=== PATIENT | male | born 1945 | race Caucasian/White ===

== ENCOUNTER → 2016-07-25 | Outpatient (CLI) | payer MEDICARE ==
[~2016-07-25] MED LIST: ASP81TEC PO; ATOR40TA70 PO; CLOP75TA PO; MECL-124 PO; METO25TA2 PO; VITA400T9 PO
== END ==
LOC: CARD 10:07
PROVIDERS: ATTEND Internal Medicine Cardiovascular Disease
DX: I25.10 Atherosclerotic heart disease of native coronary artery without angina pectoris (principal); E78.2 Mixed hyperlipidemia; I10 Essential (primary) hypertension; I49.3 Ventricular premature depolarization
CPT/HCPCS: 93306

== ENCOUNTER 2016-07-26 12:22 | Day surgery (SDC) | payer MEDICARE ==
[~2016-07-26] VITALS: Ht 182.9 cm; Wt 83.9 kg
[2016-07-26] MEDS ORDERED: NS IV 1000 ML 1,000 ML ONE (12:28)
[2016-07-26] MEDS ORDERED: HEParin (CATH LAB) 2,000 ML IV ONE (12:28)
[2016-07-26] MEDS ORDERED: NS IV 1000 ML 1,000 ML IV SCH ×2 (12:34→15:51)
[2016-07-26 12:53] VITALS: BP 145/92
[2016-07-26 12:55] LABS: BILIRUBIN,URINE NEGATIVE (NEGATIVE); KETONES,URINE NEGATIVE (NEGATIVE); LEUKOCYTE ESTERASE ,URINE 1+ (NEGATIVE); MEAN PLATELET VOLUME 9.7 FL (7.4-10.4); NITRITE,URINE NEGATIVE (NEGATIVE); PH,URINE 6 (5-9); PROTEIN,URINE 1+ (NEGATIVE); RED BLOOD COUNT 4.44 10^6/uL (4.35-5.85); RED CELL DISTRIBUTION WIDTH 13.1 % (10.0-14.5); UROBILINOGEN,URINE NORMAL (NORMAL); WHITE BLOOD COUNT 6.1 10^3/uL (4.3-11.0)
[2016-07-26 13:03] LABS: PROTHROMBIN TIME PATIENT 13.2 SEC (12.2-14.7)
[2016-07-26 13:12] LABS: ALBUMIN 4.5 GM/DL (3.2-4.5); BILIRUBIN,TOTAL 1.4 MG/DL (0.1-1.0); CALCIUM 9.6 MG/DL (8.5-10.1); CREATININE SERUM 1.34 MG/DL (0.60-1.30); POTASSIUM 4.3 MMOL/L (3.6-5.0); SQUAMOUS EPITHELIAL CELL,UR RARE /HPF; TOTAL PROTEIN 6.9 GM/DL (6.4-8.2); WBC,URINE RARE /HPF
--- NOTE | 2016-07-26 13:19 | Diagnostic Imaging Report ---
Portable upright radiograph of the chest. INDICATION: Abnormal stress test. FINDINGS: The lungs are clear. The heart size is normal. No effusion or pneumothorax. The mediastinum and vivian appear unremarkable. Sternotomy wires are seen. IMPRESSION: Unremarkable exam. Dictated by: Dictated on workstation # [id number]
[2016-07-26] MEDS ORDERED: fentaNYL INJECTION 100 MCG/2 ML AMP ONE (15:07)
[2016-07-26] MEDS ORDERED: MIDAZOLAM 5 MG/5 ML (VERSED) VIAL ONE (15:07)
--- NOTE | 2016-07-26 15:29 | Cardiac Procedure Note-CS/ASA ---
Pre-Procedure Note Pre-Op Procedure Note H&P Reviewed The H&P was reviewed, patient examined and no changes noted. Date H&P Reviewed: Jul 26, 2016 Time H&P Reviewed: 15:28 Conscious Sedation Pre-Proced Time Reviewed: 15:28 ASA Class: 3 Airway Mallampati Classification: ([place] appropriate class) I. II. III, IV Lungs Heart ASA score ASA 1: a normal healthy patient x ASA 2: a patient with a mild systemic disease (mid diabetes, controlled hypertension, obesity ASA 3: a patient with a severe systemic disease that limits activity (angina , COPD, prior Myocardial infarction) ASA 4: a patient with an incapacitating disease that is a constant threat to life (CHF, renal failure) ASA 5: a moribund patient not expected to survive 24 hrs. (ruptured aneurysm) ASA 6: a declared brain patient whose organs are being harvested. For emergent operations, add the letter E after the classification Grade 3 Sedation Plan: Analgesia, Amnesia, Plan communicated to team members, Discussed options with patient/fam, Discussed risks with patient/fam Note The patient is an appropriate candidate to undergo the planned procedure, sedation, and anesthesia. The patient immediately re-assessed prior to indication. NERI MARIA MD Jul 26, 2016 15:29
--- NOTE | 2016-07-26 15:53 | Discharge Inst-Post CATH ---
Discharge Inst-CATH Post Cardiac Cath D/C Inst Follow Up/Plan Appointment with Dr Schaefer's office in 2-4 weeks CARDIAC CATH DISCHARGE INSTRUCTIONS *Hold Metformin for 48 hours post heart cath. ACTIVITY * Go Home directly and rest. * Limit activity of the leg (or wrist if it was used) for 7 days including aerobics, swimming, jogging, bicycling, etc. * Restrict stair-climbing for 7 days if possible, if not, climb up with your non -cath leg, then bring together on the same step. * Avoid lifting, pushing, pulling or excessive movement of the affected extremity for 7 days. * Customary sexual activity may be resumed after 2 days-use caution not to use a position that strains or causes pain to the affected extremity. * No driving for 24 hours. * NO SMOKING. * Avoid straining for bowel movements for 7 days. * Gentle walking on level ground is allowed. * Returning to work will depend on the type of procedure and the results. Your doctor will discuss this with you. CALL YOUR DOCTOR FOR ANY OF THE FOLLOWING: *If bleeding from the puncture site occurs- Apply gentle pressure to site with clean cloth and call your doctor or EMS. * If a knot or lump forms under the skin, increases in size, or causes pain. * If bruising appears to be worsening or moving further down your leg instead of disappearing. * Temperature above 101 F. CARE OF YOUR GROIN INCISION; * Bruising or purple discoloration of the skin near the puncture site is common. * You may shower only, no bathtub bathing for 5 days. Be careful to avoid slipping as your leg may feel stiff. * If a closure device was used on your femoral artery, please see the attached guide regarding care of the device and your leg. * REMOVE the dressing from your groin the next day after your procedure in the shower. CARE OF YOUR WRIST INCISION; * Bruising or purple discoloration of the skin near the puncture site is common. * You may shower. * DO NOT submerge wrist. * Remove dressing in 24 hours. NERI SCHAEFER MD Jul 26, 2016 3:53 pm
--- NOTE | 2016-07-26 15:55 | Cardiology Post Procedure Note ---
Post-Procedure Note Physician (s)/Cat Tender (s) Physician NERI MARIA MD Pre-Procedure Diagnosis Pre-Procedure Diagnosis: CAD Post-Procedure Note Procedure Start Date: Jul 26, 2016 Procedure Start Time: 15:53 Name of Procedure: [facility] Findings/Procedure Note Patent bypasses and patent stent, no change compare to 2013 Anesthesia Type: Conscious Sedation Estimated blood loss (mL): 10 Contrast Amount: 65 Post-Procedure Diagnosis Post-operative diagnosis: CAD NERI MARIA MD Jul 26, 2016 3:55 pm
[2016-07-26] MEDS ORDERED: PATIENT MAY USE OWN MEDS, ALL PO SCH (16:00)
[2016-07-26 16:15] VITALS: BP 116/78
[2016-07-26] MEDS ORDERED: CATHETER FLUSH 10 ML SYR IV PRN (17:00)
[2016-07-26 19:15] VITALS: BP 102/68
--- NOTE | 2016-07-26 19:58 | CARDIAC CATHETERIZATION ---
DATE OF SERVICE: 07/26/2016 CARDIAC CATHETERIZATION REFERRING PHYSICIAN: Dr. Jasvir Calderón BRIEF HISTORY: The patient is a 70-year-old gentleman with extensive cardiac history, had a history of myocardial infection, 2 stents and bypass surgery, had abnormal stress test done. He was scheduled for a left heart catheterization, possible PTCA. PROCEDURE NOTE: After explaining the procedure to the patient, all pros and cons were explained. All questions were answered. The patient signed a consent and he was placed in the cardiac catheterization laboratory. The right groin was prepped and draped in sterile fashion. Local anesthesia applied to right groin, 6-[place]aur[place] sheath was placed in the right femoral artery. Combination of right and left Ami catheter was used to access the right and left coronary system. Multiple views were obtained. Ami right catheter was used to access the vein graft and the LUONG. Angiogram was done. Then, the pigtail catheter was advanced to the left ventricular cavity. No left ventriculogram was done to limit the amount of contrast used. Pressure was measured. Pullback LV to aorta was done. At the end of the procedure, sheath was removed, Minx device deployed and hemostasis achieved. Total contrast used was 65 mL, total radiation dose is 101 mGy. FINDINGS: Hemodynamics, LP pressure 115/8 and diastolic pressure of 8, aortic pressure 129/62, mean of 89. No significant gradient across the aortic valve. ANATOMY: 1. Left main coronary artery is bifurcating to LAD and left circumflex artery with no obstructive disease. 2. Left anterior descending artery had subtotal occlusion proximally. The LAD is receiving supplies through the [place] artery that has severe disease, and through the vein graft to the diagonal artery and through the LUONG that is atretic, but still patent. 3. Left circumflex artery is moderate in size with no obstructive disease. 4. Right coronary artery has 2 stents and is patent with good flow. 5. Vein graft angiogram. The vein graft to the diagonal artery is patent, the diagonal artery tapering down into smaller artery. It is retrograde filling the LAD system. 6. LUONG angiogram. The LUONG is fairly small artery, atretic, but still patent. Did not change compared to 2013. 7. No left ventriculogram was done. CONCLUSION: 1. Severe disease at the proximal LAD. The LAD is receiving supply through the [place] artery that has severe disease and through a very small atretic LUONG, and retrograde filling from the vein graft to the diagonal artery that is patent, the diagonal artery, itself, tapered down into a very small artery with small vessel disease. 2. Patent stent in the right coronary artery with good flow distally. 3. No obstructive disease in the circumflex artery. 4. Normal left ventricular end diastolic pressure. In discussing recommendation, I will continue maximizing medical therapy. The patient has small vessel disease in the distal LAD system, nonobstructive disease, small vessel disease in the diagonal artery which will continue to be treated medically. Abnormal stress test is probably due to small vessel disease. FINAL DIAGNOSES: 1. Coronary artery disease. 2. Hypertension. 3. Hyperlipidemia. Job ID: [id number] DocumentID: [id number] Dictated Date: 07/26/2016 16:02:05 [employer] Date: 07/26/2016 18:51:38 Dictated By: NERI MARIA MD
[2016-07-26 20:15] VITALS: BP 117/73
[2016-07-26 22:03] VITALS: BP 117/73
--- OUTSIDE RECORDS SUMMARY | 2016-08-02 13:31 | XMS REPORT | Continuity of Care Document ---
Author Author [facility] Organization [facility] Address Unknown Phone Unavailable Allergies Active Description Code Type Severity Reaction Onset Reported/Identified Relationship to Patient Clinical Status Yes No Known Drug Allergies [id number] Drug Allergy Unknown N/ A 03/01/2010 Medications Problems Date Dx Coded Attending Type Code Diagnosis Diagnosed By 07/04/2012 NERI MARIA MD Ot 272.4 HYPERLIPIDEMIA NEC/NOS 07/04/2012 NERI MARIA MD Ot 276.8 HYPOPOTASSEMIA 07/04/2012 NERI MARIA MD Ot 401.9 HYPERTENSION NOS 07/04/2012 NERI MARIA MD Ot 410.41 AC MYOCARD INFARCT,OTH INFERIOR WALL,INI 07/04/2012 NERI MARIA MD Ot 414.01 CORONARY ATHEROSCLEROSIS OF [place] CORON 07/04/2012 NERI MARIA MD Ot 414.4 CORONARY ATHEROSCLEROSIS DUE TO CALCIFIE 07/04/2012 NERI MARIA MD Ot V15.82 HISTORY OF TOBACCO USE 07/04/2012 NERI MARIA MD Ot V17.49 FAMILY HISTORY OF OTHER CARDIOVASCULAR D 10/27/2012 INOCENTE GARCIA BORIS Jeannie Ot 401.9 HYPERTENSION NOS 11/13/2012 WANDA WEBBER MD Ot 413.9 ANGINA PECTORIS NEC/NOS 11/13/2012 WANDA WEBBER MD Ot V45.81 AORTOCORONARY BYPASS 11/13/2012 WANDA WEBBER MD Ot V57.89 REHABILITATION PROC NEC 06/26/2013 NERI MARIA MD Ot 272.4 HYPERLIPIDEMIA NEC/NOS 06/26/2013 NERI MARIA MD Ot 401.9 HYPERTENSION NOS 06/26/2013 NERI MARIA MD Ot 412 OLD MYOCARDIAL INFARCT 06/26/2013 NERI MARIA MD Ot 414.01 CORONARY ATHEROSCLEROSIS OF [place] CORON 06/26/2013 NERI MARIA MD Ot 427.0 PAROX ATRIAL TACHYCARDIA 06/26/2013 NERI MARIA MD Ot 427.69 PREMATURE BEATS NEC 06/26/2013 NERI MARIA MD Ot 794.30 ABN CARDIOVASC STUDY NOS 06/26/2013 NERI MARIA MD, Ot V45.81 AORTOCORONARY BYPASS 06/26/2013 NERI MARIA MD, Ot V45.82 PERCUTANEOUS TRANSLUM CORON ANGIOPLASTY 06/26/2013 NERI MARIA MD Ot V58.63 LONG-TERM(CURRENT)USE OF ANTIPLATELET/AN 06/26/2013 NERI MARIA MD Ot V58.69 OT MED,LT,CURRENT USE 07/03/2013 PREET BOYD Ot 272.4 HYPERLIPIDEMIA NEC/NOS 07/03/2013 PREET BOYD Ot 333.0 DEGEN BASAL GANGLIA NEC 07/03/2013 PREET BOYD Ot 401.9 HYPERTENSION NOS 07/03/2013 PREET BOYD Ot 414.00 CORON ATHEROSCLER NOS TYPE VESSEL, NATIV 07/03/2013 PREET BOYD Ot 427.69 PREMATURE BEATS NEC 07/03/2013 PREET BOYD Ot 785.1 PALPITATIONS 07/03/2013 PREET BOYD Ot V17.3 FAM HX-ISCHEM HEART DIS 07/16/2013 MARYAM PEARSON DO Ot 300.00 ANXIETY STATE NOS 07/16/2013 MARYAM PEARSON DO Ot 780.2 SYNCOPE AND COLLAPSE 07/16/2013 MARYAM PEARSON DO Ot 780.4 DIZZINESS AND GIDDINESS 07/16/2013 MARYAM PEARSON DO Ot 780.8 GENERALIZED HYPERHIDROSIS 07/16/2013 MARYAM PEARSON DO Ot 786.50 CHEST PAIN NOS 07/16/2013 MARYAM PEARSON DO Ot V45.81 AORTOCORONARY BYPASS 07/16/2013 MARYAM PEARSON DO Ot V45.82 PERCUTANEOUS TRANSLUM CORON ANGIOPLASTY 04/09/2014 NERI MARIA MD Ot 272.4 04/09/2014 NERI MARIA MD Ot 414.00 04/09/2014 NERI MARIA MD Ot 426.4 04/09/2014 NERI MARIA MD Ot 427.69 04/09/2014 CANDACE MD, BASHAR J Ot 786.50 05/04/2015 CANDACE GARZA, BASANNE-MARIE J Ot 272.4 05/04/2015 CANDACE GARZA, BASANNE-MARIE J Ot 414.00 05/04/2015 CANDACE GARZA, NERI J Ot 426.4 05/04/2015 CANDACE GARZA, BASHAR J Ot 427.69 05/04/2015 CANDACE GARZA, NERI J Ot 786.50 05/04/2015 Ot 272.4 05/04/2015 Ot 333.0 05/04/2015 Ot 401.9 05/04/2015 Ot 414.00 05/04/2015 Ot 427.69 05/04/2015 Ot 785.1 05/04/2015 Ot V17.3 05/04/2015 CANDACE GARZA, NERI J Ot 272.4 05/04/2015 CANDACE GARZA, NERI J Ot 414.01 05/04/2015 CANDACE GARZA, NERI J Ot V45.81 05/04/2015 Ot 413.9 05/04/2015 Ot V45.81 05/04/2015 Ot V57.89 05/04/2015 CANADCE GARZA, NERI J Ot 272.4 05/04/2015 CANDACE GARZA, NERI J Ot 333.0 05/04/2015 CANDACE GARZA, NERI J Ot 397.0 05/04/2015 CANDACE GARZA, NERI J Ot 401.9 05/04/2015 CANDACE GARZA, NERI J Ot 414.00 05/04/2015 CANDACE GARZA, NERI J Ot 424.0 05/04/2015 CANDACE GARZA, RADHAHAR J Ot 427.69 05/04/2015 CANDACE GARZA, NERI J Ot 785.1 05/04/2015 CANDACE GARZA, NERI J Ot 786.50 05/05/2015 PREET BOYD Ot E78.2 05/05/2015 PREET BOYD Ot I10 05/05/2015 PREET BOYD Ot I25.10 05/05/2015 PREET BOYD Ot I47.1 05/27/2015 PREET BOYD Ot E78.2 05/27/2015 PREET BOYD Ot I10 05/27/2015 PREET BOYD Ot I25.10 05/27/2015 PREET BOYD Ot I47.1 06/03/2015 PREET BOYD Ot E78.2 MIXED HYPERLIPIDEMIA 06/03/2015 PREET BOYD Ot I10 ESSENTIAL (PRIMARY) HYPERTENSION 06/03/2015 PREET BOYD Ot I25.10 ATHSCL HEART DISEASE OF [place] CORONARY 06/03/2015 PREET BOYD Ot I47.1 SUPRAVENTRICULAR TACHYCARDIA 07/19/2016 NERI MARIA MD Ot 272.4 HYPERLIPIDEMIA NEC/NOS 07/19/2016 CANDACE GARZA, NERI Kirk Ot 414.00 CORON ATHEROSCLER NOS TYPE VESSEL, NATIV 07/19/2016 NERI MARIA MD Ot 426.4 RT BUNDLE BRANCH BLOCK 07/19/2016 NERI MARIA MD Ot 427.69 PREMATURE BEATS NEC 07/19/2016 NERI MARIA MD Ot 786.50 CHEST PAIN NOS 07/19/2016 Ot 272.4 HYPERLIPIDEMIA NEC/NOS 07/19/2016 Ot 333.0 DEGEN BASAL GANGLIA NEC 07/19/2016 Ot 401.9 HYPERTENSION NOS 07/19/2016 Ot 414.00 CORON ATHEROSCLER NOS TYPE VESSEL, NATIV 07/19/2016 Ot 427.69 PREMATURE BEATS NEC 07/19/2016 Ot 785.1 PALPITATIONS 07/19/2016 Ot V17.3 FAM HX-ISCHEM HEART DIS 07/19/2016 PREET BOYD Ot E78.2 MIXED HYPERLIPIDEMIA 07/19/2016 PREET BOYD Ot I10 ESSENTIAL (PRIMARY) HYPERTENSION 07/19/2016 PREET BOYD Ot I25.10 ATHSCL HEART DISEASE OF [place] CORONARY 07/19/2016 PREET BOYD Ot I47.1 SUPRAVENTRICULAR TACHYCARDIA 07/26/2016 NERI MARIA MD Ot 272.4 HYPERLIPIDEMIA NEC/NOS 07/26/2016 NERI MARIA MD Ot 414.01 CORONARY ATHEROSCLEROSIS OF [place] CORON 07/26/2016 NERI MARIA MD Ot V45.81 AORTOCORONARY BYPASS 07/26/2016 Ot 413.9 ANGINA PECTORIS NEC/NOS 07/26/2016 Ot V45.81 AORTOCORONARY BYPASS 07/26/2016 Ot V57.89 REHABILITATION PROC NEC 07/26/2016 NERI MARIA MD Ot 272.4 HYPERLIPIDEMIA NEC/NOS 07/26/2016 NERI MARIA MD Ot 333.0 DEGEN BASAL GANGLIA NEC 07/26/2016 NERI MARIA MD Ot 397.0 TRICUSPID VALVE DISEASE 07/26/2016 NERI MARIA MD Ot 401.9 HYPERTENSION NOS 07/26/2016 NERI MARIA MD Ot 414.00 CORON ATHEROSCLER NOS TYPE VESSEL, NATIV 07/26/2016 NERI MARIA MD Ot 424.0 MITRAL VALVE DISORDER 07/26/2016 NERI MARIA MD Ot 427.69 PREMATURE BEATS NEC 07/26/2016 NERI MARIA MD Ot 785.1 PALPITATIONS 07/26/2016 NERI MARIA MD Ot 786.50 CHEST PAIN NOS Procedures Results Test Result Range Automated blood complete blood count (hemogram) panel - 07/26/16 12:45 Blood leukocytes automated count (number/volume) 6.1 10*3/ uL 4.3-11.0 Blood erythrocytes automated count (number/volume) 4.44 10*6 /uL 4.35-5.85 Venous blood hemoglobin measurement (mass/volume) 14.6 g/dL 13.3-17.7 Blood hematocrit (volume fraction) 45 % 40-54 Automated erythrocyte mean corpuscular volume 101 [foz_us] 80-99 Automated erythrocyte mean corpuscular hemoglobin (mass per erythrocyte) 33 pg 25-34 Automated erythrocyte mean corpuscular hemoglobin concentration measurement ( mass/volume) 33 g/dL 32-36 Automated erythrocyte distribution width ratio 13.1 % 10.0-14.5 Automated blood platelet count (count/volume) 170 10*3/uL 130-400 Automated blood platelet mean volume measurement 9.7 [foz_us ] 7.4-10.4 PT panel in platelet poor plasma by coagulation assay - 07/26/16 12:45 Prothrombin time (PT) in platelet poor plasma by coagulation assay 13.2 s 12.2-14.7 INR in platelet poor plasma or blood by coagulation assay 1.0 0.8-1.4 Activated partial thromboplastin time (aPTT) in platelet poor plasma bycoagulation assay - 07/26/16 12:45 Activated partial thromboplastin time (aPTT) in platelet poor plasma bycoagulation assay 26 s 24-35 Comprehensive metabolic panel - 07/26/16 12:45 Serum or plasma sodium measurement (moles/volume) 142 mmol/ L 135-145 Serum or plasma potassium measurement (moles/volume) 4.3 mmol/L 3.6-5.0 Serum or plasma chloride measurement (moles/volume) 106 mmol /L 98-107 Carbon dioxide 28 mmol/L 21-32 Serum or plasma anion gap determination (moles/volume) 8 mmol/L 5-14 Serum or plasma urea nitrogen measurement (mass/volume) 23 mg/dL 7-18 Serum or plasma creatinine measurement (mass/volume) 1.34 mg /dL 0.60-1.30 Serum or plasma urea nitrogen/creatinine mass ratio 17 0-20 Serum or plasma creatinine measurement with calculation of estimated glomerular filtration rate 53 NRG Serum or plasma glucose measurement (mass/volume) 89 mg/dL 70-105 Serum or plasma calcium measurement (mass/volume) 9.6 mg/dL 8.5-10.1 Serum or plasma total bilirubin measurement (mass/volume) 1.4 mg/dL 0.1-1.0 Serum or plasma alkaline phosphatase measurement (enzymatic activity/volume) 82 U/L 40-136 Serum or plasma aspartate aminotransferase measurement (enzymatic activity/ volume) 32 U/L 5-34 Serum or plasma alanine aminotransferase measurement (enzymatic activity/volume ) 38 U/L 0-55 Serum or plasma protein measurement (mass/volume) 6.9 g/dL 6.4-8.2 Serum or plasma albumin measurement (mass/volume) 4.5 g/dL 3.2-4.5 Complete urinalysis with reflex to culture - 07/26/16 12:45 Urine color determination YELLOW NRG Urine clarity determination CLEAR NRG Urine pH measurement by test strip 6 5- 9 Specific gravity of urine by test strip 1.020 1.016-1.022 Urine protein assay by test strip, semi-quantitative 1+ NEGATIVE Urine glucose detection by automated test strip NEGATIVE NEGATIVE Erythrocytes detection in urine sediment by light microscopy NEGATIVE NEGATIVE Urine ketones detection by automated test strip NEGATIVE NEGATIVE Urine nitrite detection by test strip NEGATIVE NEGATIVE Urine total bilirubin detection by test strip NEGATIVE NEGATIVE Urine urobilinogen measurement by automated test strip (mass/volume) NORMAL NORMAL Urine leukocyte esterase detection by dipstick 1+ NEGATIVE Automated urine sediment erythrocyte count by microscopy (number/high power field) NONE NRG Automated urine sediment leukocyte count by microscopy (number/high power field ) RARE NRG Bacteria detection in urine sediment by light microscopy NEGATIVE NRG Squamous epithelial cells detection in urine sediment by light microscopy RARE NRG Crystals detection in urine sediment by light microscopy NONE NRG Casts detection in urine sediment by light microscopy NONE NRG Mucus detection in urine sediment by light microscopy MODERATE NRG Complete urinalysis with reflex to culture NO NRG Methicillin resistant Staphylococcus aureus (MRSA) screening culture - 12:45 Methicillin resistant Staphylococcus aureus (MRSA) screening culture NEG NRG Encounters ACCT No. Visit Date/Time Discharge Status Pt. Type Provider Facility Loc./Unit Complaint [id number] 07/26/2016 12:22:00 2016 20:35:00 DIS Outpatient NERI MARIA MD [facility] ABN STRESS, CAD, [id number] 07/16/2013 18:42:00 2013 20:27:00 DIS Emergency MARYAM PEARSON DO [facility] ER CHEST PAIN [id number] 04/04/2013 08:55:00 2013 00:01:00 DIS Outpatient PREET BOYD [facility] CARD CAD,PALP [id number] 06/26/2013 10:23:00 2013 16:50:00 DIS Outpatient NERI MARIA MD [facility] CATH ABNORMAL STRESS,SOB,CAD,HTN [id number] 06/18/2013 12:12:00 2013 23:59:59 CLS Outpatient NERI MARIA MD [facility] CARD CAD,CP,HLP [id number] 04/15/2013 07:57:00 2013 23:59:59 CLS Outpatient NERI MARIA MD [facility] CARD CAD,CP,HLP [id number] 11/20/2012 08:50:00 2012 23:59:59 CLS Outpatient NERI MARIA MD [facility] CARD CAD,HLP [id number] 11/09/2012 12:52:00 2012 00:01:00 DIS Outpatient WANDA WEBBER MD [facility] CR STABLE ANGINA [id number] 10/27/2012 08:24:00 2012 10:19:00 DIS Emergency INOCENTE DOBORIS [facility] ER HIGH BLOOD PRESSURE [id number] 07/03/2012 11:46:00 2012 11:25:00 DIS Outpatient NERI MARIA MD [facility] CATH CHEST PAIN/SOA [id number] 07/25/2016 10:07:00 ACT Outpatient NERI MARIA MD [facility] CARD I25.10,E78.2 [id number] 05/04/2015 12:47:00 ACT Outpatient PREET OATES [facility] CARD ATRIAL TACHYCARDIA,CAD,HLP,HTN [id number] 07/04/2013 09:00:00 Document Registration [id number] 11/14/2012 10:00:00 Document Registration
--- OUTSIDE RECORDS SUMMARY | 2016-08-02 13:31 | XMS REPORT | Continuity of Care Document ---
Author Author [facility] Organization [facility] Address Unknown Phone Unavailable Care Team Providers Care Mental Health Worker Name Role Phone WANDA WEBBER MD PP Insurance Providers Payer Name Policy Number Subscriber Name Relationship [employer] Mcr Supp [id number] Florian Jean Baptiste Jr 01 Self / Same As Patient Wps Medicare [id number] Florian Jean Baptiste Self / Same As Patient Advance Directives Directive Response Recorded Date Advance Directives N 07/03/12 12:50pm Problems No Known Problems or Medical conditions. Family History History Response Recorded Date/Time Hx Family Cancer Y aunts on dads side-liver,brain ca 07/03/12 12:50pm Hx Family Breast Cancer N 07/03/12 12: 50pm Hx Family Lung Cancer N 07/03/12 12:50pm Hx Family Colorectal Cancer N 07/03/12 12 :50pm Social History History Response Recorded Date/Time Alcohol Use Denies Use 07/03/12 12:50pm Recreational Drug Use N 07/03/12 12:50pm Allergies, Adverse Reactions, Alerts Allergen Type Severity Reaction Last Updated No Known Drug Allergies 03/01/10 Medications No known medications Response Recorded Date/Time Status not known Unknown Results Test Date Result Interp. Ref. Range Activated Partial Thromboplast Time July 03, 2012 11:20am 26 SEC N 24-35 Alanine Aminotransferase (ALT/SGPT) July 03, 2012 11:20am 42 U/L N 30-65 Albumin July 03, 2012 11:20am 4.3 G/DL N 3.4-5.0 Alkaline Phosphatase July 03, 2012 11:20am 136 U/L N 50-136 Aspartate Amino Transf (AST/SGOT) July 03, 2012 11:20am 34 U/L N 15-37 BUN/Creatinine Ratio July 03, 2012 11:20am 13 - Basophils # (Auto) July 03, 2012 11:20am 0.0 10^3/uL N 0.0-0.1 Basophils (%) (Auto) July 03, 2012 11:20am 1 % N 0-10 Blood Urea Nitrogen July 03, 2012 11:20am 17 MG/DL N 7-18 Calcium Level July 03, 2012 11:20am 8.8 MG/DL N 8.5-10.1 Carbon Dioxide Level July 03, 2012 11:20am 22 MMOL/L N 21-32 Chloride Level July 03, 2012 11:20am 105 MMOL/L N 101-110 Creatine Kinase MB July 03, 2012 11:20am 7.4 NG/ML PH 0.0-3.6 Creatinine July 03, 2012 11:20am 1.3 MG/ DL N 0.6-1.3 Eosinophils # (Auto) July 03, 2012 11:20am 0.0 10^3/uL N 0.0-0.3 Eosinophils (%) (Auto) July 03, 2012 11:20am 1 % N 0-10 Glucose Level July 03, 2012 11:20am 113 MG/DL H 74-106 Hematocrit July 03, 2012 11:20am 43 % N 40-54 Hemoglobin July 03, 2012 11:20am 15.0 G/ DL N 13.3-17.7 Lymphocytes # (Auto) July 03, 2012 11:20am 1.2 X 10^3 N 1.0-4.0 Lymphocytes (%) (Auto) July 03, 2012 11:20am 16 % N 12-44 Magnesium Level July 03, 2012 11:20am 1.7 MG/DL L 1.8-2.4 Mean Corpuscular Hemoglobin July 03, 2012 11:20am 33 PG N 25-34 Mean Corpuscular Hemoglobin Concent July 03, 2012 11:20am 35 G/DL N 32-36 Mean Corpuscular Volume July 03, 2012 11:20am 94 FL N 80-99 Mean Platelet Volume July 03, 2012 11:20am 9.7 FL N 7.4-10.4 Monocytes # (Auto) July 03, 2012 11:20am 0.5 X 10^3 N 0.0-1.0 Monocytes (%) (Auto) July 03, 2012 11:20am 6 % N 0-12 Myoglobin July 03, 2012 11:20am 470 UG/L H 10-92 Neutrophils # (Auto) July 03, 2012 11:20am 5.8 X 10^3 N 1.8-7.8 Neutrophils (%) (Auto) July 03, 2012 11:20am 77 % H 42-75 Platelet Count July 03, 2012 11:20am 210 10^3/uL N 130-400 Potassium Level July 03, 2012 11:20am 3.3 MMOL/L L 3.6-5.0 Prothrombin Time July 03, 2012 11:20am 12.5 SEC N 12.2-14.7 Red Blood Count July 03, 2012 11:20am 4.61 10^6/uL N 4.35-5.85 Red Cell Distribution Width July 03, 2012 11:20am 13.1 % N 10.0-14.5 Sodium Level July 03, 2012 11:20am 140 MMOL/L N 135-145 Total Bilirubin July 03, 2012 11:20am 0.6 MG/DL N 0.0-1.0 Total Creatine Kinase July 03, 2012 11:20am 247 U/L H 1-205 Total Protein July 03, 2012 11:20am 7.7 G /DL N 6.4-8.2 Troponin I July 03, 2012 11:20am 0.56 NG/ ML PH 0.00-0.10 White Blood Count July 03, 2012 11:20am 7.5 10^3/uL N 4.3-11.0 Estimat Glomerular Filtration Rate July 03, 2012 11:20am 55 - INR Comment July 03, 2012 11:20am 0.9 N 0.8-1.4 Procedures Procedure Code Date DIAGNOSTIC COLONOSCOPY 27102 03/01/10
--- OUTSIDE RECORDS SUMMARY | 2016-08-02 13:31 | XMS REPORT | Continuity of Care Document ---
Author Author [facility] [place] [facility] Organization [facility] [place] [facility] Address Unknown Phone Unavailable Care Team Providers Care Agile Business Analyst Name Role Phone WANDA WEBBER MD PP Insurance Providers Payer Name Policy Number Subscriber Name Relationship Blue [employer] Supp [id number] Florian Jean Baptiste Jr 01 Self / Same As Patient Wps Medicare [id number] Florian Jean Baptiste Self / Same As Patient Advance Directives Directive Response Recorded Date Advance Directives N 10/27/12 8:45am Problems No Known Problems or Medical conditions. Family History History Response Recorded Date/Time Hx Family Cancer Y aunts on dads side-liver,brain ca 07/03/12 12:50pm Hx Family Breast Cancer N 07/03/12 12: 50pm Hx Family Lung Cancer N 07/03/12 12:50pm Hx Family Colorectal Cancer N 07/03/12 12 :50pm Hx Family Cardiac Disorders Y 07/03/12 12 :50pm Social History History Response Recorded Date/Time Alcohol Use Past History 10/27/12 9:36am Recreational Drug Use N 10/27/12 8:45am Allergies, Adverse Reactions, Alerts Allergen Type Severity Reaction Last Updated No Known Drug Allergies 03/01/10 Medications Medication Dose Units Route Sig Qty Days Metoprolol Tartrate (Metoprolol Tartrate 25 Mg) 12.5 Mg PO BID PRN Aspirin (Aspirin Ec 81 Mg) 81 Mg PO DAILY Atorvastatin Calcium 40 Mg PO DAILY Clopidogrel Bisulfate (Plavix 75 Mg) 75 Mg PO DAILY Immunizations Name Given Type Date of Pneumonia Vaccine 07/08/12 H Response Recorded Date/Time Status not known Unknown Results No Known Relevant Diagnostic Tests, Laboratory Data and/or Discharge Summary. Procedures Procedure Code Date DIAGNOSTIC COLONOSCOPY 22677 03/01/10 Encounters Encounter Location Date/Time Departed Emergency Room [facility] [place] [facility] 8:24am
--- OUTSIDE RECORDS SUMMARY | 2016-08-02 13:32 | XMS REPORT | Continuity of Care Document ---
Author Author [facility] Organization [facility] Address Unknown Phone Unavailable Care Team Providers Care Set Up Operator Name Role Phone WANDA WEBBER MD PP Insurance Providers Payer Name Policy Number Subscriber Name Relationship Blue Cross [facility] Supp [id number] Florian Jean Baptiste Jr 01 Self / Same As Patient Wps Medicare [id number] Florian Jean Baptiste Self / Same As [...] Interp. Ref. Range Activated Partial Thromboplast Time October 27, 2012 8: 55am 28 SEC N 24-35 Alanine Aminotransferase (ALT/SGPT) October 27, 2012 8: 55am 48 U/L N 30-65 Albumin October 27, 2012 8:55am 4.1 G/ DL N 3.4-5.0 Alkaline Phosphatase October 27, 2012 8:55am 124 U/L N 50-136 Amylase Level October 27, 2012 8:55am 85 U/L N 25-115 Aspartate Amino Transf (AST/SGOT) October 27, 2012 8:55am 28 U/L N 15-37 BUN/Creatinine Ratio October 27, 2012 8:55am 11 - Basophils # (Auto) October 27, 2012 8:55am 0.0 10^3/uL N 0.0-0.1 Basophils (%) (Auto) October 27, 2012 8:55am 1 % N 0-10 Blood Urea Nitrogen October 27, 2012 8:55am 14 MG/DL N 7-18 Calcium Level October 27, 2012 8:55am 9.1 MG/DL N 8.5-10.1 Carbon Dioxide Level October 27, 2012 8:55am 29 MMOL/L N 21-32 Chloride Level October 27, 2012 8:55am 102 MMOL/L N 101-110 Cholesterol Level July 04, 2012 5:58am 195 MG/DL N -200 Creatine Kinase MB October 27, 2012 8:55am 1.4 NG/ML N 0.0-3.6 Creatinine October 27, 2012 8:55am 1.3 MG/DL N 0.6-1.3 Eosinophils # (Auto) October 27, 2012 8:55am 0.2 10^3/uL N 0.0-0.3 Eosinophils (%) (Auto) October 27, 2012 8:55am 4 % N 0-10 Glucose Level October 27, 2012 8:55am 99 MG/DL N 74-106 HDL Cholesterol July 04, 2012 5:58am 32 MG/DL L 35-60 Hematocrit October 27, 2012 8:55am 47 % N 40-54 Hemoglobin October 27, 2012 8:55am 15.8 G/DL N 13.3-17.7 LDL Cholesterol July 04, 2012 5:58am 137 MG/DL H 0-129 Lipase October 27, 2012 8:55am 269 U/ L N 73-393 Lymphocytes # (Auto) October 27, 2012 8:55am 1.1 X 10^3 N 1.0-4.0 Lymphocytes (%) (Auto) October 27, 2012 8:55am 25 % N 12-44 Magnesium Level July 03, 2012 11:20am 1.7 MG/DL L 1.8-2.4 Mean Corpuscular Hemoglobin October 27, 2012 8:55am 32 PG N 25-34 Mean Corpuscular Hemoglobin Concent October 27, 2012 8: 55am 34 G/DL N 32-36 Mean Corpuscular Volume October 27, 2012 8:55am 97 FL N 80-99 Mean Platelet Volume October 27, 2012 8:55am 10.0 FL N 7.4-10.4 Monocytes # (Auto) October 27, 2012 8:55am 0.3 X 10^3 N 0.0-1.0 Monocytes (%) (Auto) October 27, 2012 8:55am 6 % N 0-12 Myoglobin July 03, 2012 11:20am 470 UG/L H 10-92 Neutrophils # (Auto) October 27, 2012 8:55am 2.9 X 10^3 N 1.8-7.8 Neutrophils (%) (Auto) October 27, 2012 8:55am 65 % N 42-75 Platelet Count October 27, 2012 8:55am 143 10^3/uL N 130-400 Potassium Level October 27, 2012 8:55am 3.9 MMOL/L N 3.6-5.0 Prothrombin Time October 27, 2012 8:55am 12.7 SEC N 12.2-14.7 Red Blood Count October 27, 2012 8:55am 4.87 10^6/uL N 4.35-5.85 Red Cell Distribution Width October 27, 2012 8:55am 13.8 % N 10.0-14.5 Sodium Level October 27, 2012 8:55am 137 MMOL/L N 135-145 Total Bilirubin October 27, 2012 8:55am 0.5 MG/DL N 0.0-1.0 Total Creatine Kinase October 27, 2012 8:55am 168 U/L N 1-205 Total Protein October 27, 2012 8:55am 7.2 G/DL N 6.4-8.2 Triglycerides Level July 04, 2012 5:58am 130 MG/DL N 30.0-150.0 Troponin I October 27, 2012 8:55am < 0.10 NG/ML 0.00-0.10 VLDL Cholesterol July 04, 2012 5:58am 26 MG/DL N 5-40 White Blood Count October 27, 2012 8:55am 4.4 10^3/uL N 4.3-11.0 Pro-B-Type Natriuretic Peptide October 27, 2012 8:55am 587.2 PG/ML H -125 Glucometer July 03, 2012 9:54pm 96 MG/DL N 70-110 Lab Scanned Report July 03, 2012 11:46am Referred Lab Report [id number] - Estimat Glomerular Filtration Rate October 27, 2012 8: 55am 55 - [id number] Genotype July 04, 2012 5:58am *2 Heterozygote - INR Comment October 27, 2012 8:55am 1.0 N 0.8-1.4 Procedures Procedure Code Date DIAGNOSTIC COLONOSCOPY [id number] 03/01/10 Encounters Encounter Location Date/Time Departed Emergency Room [facility] 8:24am
== END 2016-07-26 20:35 | disposition home or self-care (01) ==
LOC: CATH 12:22 → ICU 16:01 → CATH 20:35
PROVIDERS: ATTEND Internal Medicine Cardiovascular Disease
DX: R94.39 Abnormal result of other cardiovascular function study (principal); I25.2 Old myocardial infarction; I10 Essential (primary) hypertension; E78.5 Hyperlipidemia, unspecified; I49.3 Ventricular premature depolarization; Z95.5 Presence of coronary angioplasty implant and graft; Z95.1 Presence of aortocoronary bypass graft; Z79.899 Other long term (current) drug therapy
CPT/HCPCS: 36415; 71010; 80053; 81000; 85027; 85610; 85730; 87081; 93005; 93459

== ENCOUNTER → 2017-05-03 | Outpatient (CLI) | payer MEDICARE ==
--- NOTE | 2017-05-03 17:03 | Diagnostic Imaging Report ---
INDICATION: Heel pain. TIME OF EXAM: 12:37 p.m. FINDINGS: Two views of the left calcaneus were obtained. There is a moderate-sized plantar calcaneal spur. Calcaneus is intact. No fractures are seen. No stress reaction is identified. IMPRESSION: Plantar calcaneal spur. No other significant abnormality is seen. Dictated by: Dictated on workstation # [id number]
--- NOTE | 2017-05-03 17:05 | Diagnostic Imaging Report ---
INDICATION: Left foot and heel pain. TIME OF EXAM: 12:35 p.m. FINDINGS: The metatarsals are intact. There are degenerative changes of the first MTP joint with joint space narrowing and marginal spurring. Remaining MTP joints are intact. The phalanges are unremarkable. The mid foot and hind foot are unremarkable apart from a small plantar calcaneal spur. IMPRESSION: Degenerative changes. No acute bony abnormality is detected. Dictated by: Dictated on workstation # [id number]
== END ==
LOC: RAD 11:46
PROVIDERS: ATTEND Family Medicine
DX: M77.32 Calcaneal spur, left foot (principal); M19.072 Primary osteoarthritis, left ankle and foot
CPT/HCPCS: 73630; 73650

== ENCOUNTER → 2018-06-11 | Outpatient (CLI) | payer MEDICARE | LOC: CARD 09:37 | PROVIDERS: ATTEND Internal Medicine Cardiovascular Disease | DX: I25.10 Atherosclerotic heart disease of native coronary artery without angina pectoris (principal); R07.9 Chest pain, unspecified; I10 Essential (primary) hypertension; I49.3 Ventricular premature depolarization; G90.3 Multi-system degeneration of the autonomic nervous system | CPT/HCPCS: 93306 ==

== ENCOUNTER → 2020-06-24 | Outpatient (CLI) | payer MEDICARE ==
[~2020-06-24] VITALS: Ht 182 cm; Wt 81.0 kg
[~2020-06-24] MED LIST changes: +CATHETER FLUSH 10 ML SYR IV PRN
[2020-06-24 13:13] VITALS: BP 139/88
--- NOTE | 2020-06-24 15:39 | Cardiology Stress Test Report ---
Stress Test Report Date of Procedure/Referring: Date of Procedure: June 24, 2020 PCP Neri Schaefer MD Admitting Physician Jasvir Calderón MD Indications: HTN Baseline Heart Rate: 73 Baseline Blood Pressure: Blood Pressure Systolic: 139 Blood Pressure Diastolic: 88 Vital Signs Date Time Temp Pulse Resp B/P (MAP) Pulse Ox O2 Delivery O2 Flow Rate FiO2 06/24/20 13:13 73 139/88 (105) Baseline Vital Signs Vital Signs Date Time Temp Pulse Resp B/P (MAP) Pulse Ox O2 Delivery O2 Flow Rate FiO2 06/24/20 13:13 73 139/88 (105) Baseline EKG: Baseline EKG: NSR, RBBB Summary: After explaining the procedure and details to the patient, he signed the consent and was brought to the stress nuclear laboratory. Patient exercised on standard Mahendra protocol, EKG, heart rate and blood pressure were monitored continuously, resting and stress doses of radio tracer were injected, imaging was acquired and reviewed in the short axis, horizontal long axis and vertical long axis views Patient was able to exercise for a total of 6 minutes on Mahendra protocol, METs 7.3 Maximum heart rate 131 Maximum blood pressure 193/86 Stress EKG, Minimal nondiagnostic changes Recovery EKG, Return to baseline TID: 1.17 SSS: 8 SDS: 2 EF: 57 Conclusion: 1. Fair exercise tolerance for a total of 6 minutes, 7.3 minutes on standard Mahendra protocol achieving 89% of maximal expected heart rate 2. Baseline right bundle branch block with nondiagnostic EKG changes with exercise return to baseline during recovery 3. Mild reversible ischemia involving the mid to apical anterior wall 4. Normal left ventricular size, EF 57% NERI SCAHEFER MD June 24, 2020 15:39
== END ==
LOC: CARD 11:30
PROVIDERS: ATTEND Internal Medicine Cardiovascular Disease
DX: I07.1 Rheumatic tricuspid insufficiency (principal); I11.9 Hypertensive heart disease without heart failure
CPT/HCPCS: 78452; 93017; 93306; A9502

== ENCOUNTER → 2022-06-09 | Outpatient (CLI) | payer MEDICARE ==
[~2022-06-09] MED LIST changes: -CATHETER FLUSH 10 ML SYR IV PRN
== END ==
LOC: CARD 10:32
PROVIDERS: ATTEND Physician Assistant
DX: I08.3 Combined rheumatic disorders of mitral, aortic and tricuspid valves (principal); I11.9 Hypertensive heart disease without heart failure
CPT/HCPCS: 93306

== ENCOUNTER → 2022-07-06 | Outpatient (CLI) | payer MEDICARE ==
[~2022-07-06] MED LIST changes: +CATHETER FLUSH 10 ML SYR IVP PRN
[2022-07-06 09:31] VITALS: BP 152/89
[2022-07-06 09:32] VITALS: BP 147/85
[2022-07-06 09:43] VITALS: BP 202/118
[2022-07-06 09:46] VITALS: BP 182/106
[2022-07-06 09:47] VITALS: BP 150/83
--- NOTE | 2022-07-06 12:04 | Cardiology Stress Test Report ---
Stress Test Report Date of Procedure/Referring: Date of Procedure: July 06, 2022 PCP Jasvir Bronson MD Admitting Physician Admitting Physician: Attending Physician: Jimena Garcia Baseline Heart Rate: 64 Baseline Blood Pressure: Blood Pressure Systolic: 150 Blood Pressure Diastolic: 83 Vital Signs Date Time Temp Pulse Resp B/P (MAP) Pulse Ox O2 Delivery O2 Flow Rate FiO2 07/06/22 09:31 64 152/89 (110) Room Air Baseline Vital Signs Vital Signs Date Time Temp Pulse Resp B/P (MAP) Pulse Ox O2 Delivery O2 Flow Rate FiO2 07/06/22 09:31 64 152/89 (110) Room Air Baseline EKG: Baseline EKG: NSR Summary: After explaining the procedure and details to the patient, he signed the consent and was brought to the stress nuclear laboratory. Patient exercised on standard Mahendra protocol, EKG, heart rate and blood pressure were monitored continuously, resting and stress doses of radio tracer were injected, imaging was acquired and reviewed in the short axis, horizontal long axis and vertical long axis views Patient was able to exercise for a total of 4.30 minutes on Mahendra protocol, METs 6.4 Maximum heart rate 144 Maximum blood pressure 202/118 Stress EKG, Minimal nondiagnostic changes Recovery EKG, Return to baseline TID: 0.88 SSS: 8 SDS: 6 EF: 58 Conclusion: Fair exercise tolerance for 4 minutes and 30 seconds on standard Mahendra protocol, 6.4 METS achieving 99% of maximal expected heart rate Appropriate heart rate response to exercise with hypertensive response to exercise with peak blood pressure 202/118 return to baseline during recovery Baseline right bundle branch block with nondiagnostic EKG changes with exercise return to baseline during recovery Reversible ischemia involving the mid to apical anterior wall and anterior lateral wall Normal left ventricular size, ejection fraction 58% Copy Copies To 1: JASVIR BRONSON MD, BASHAR J MD July 06, 2022 12:04
== END ==
LOC: CARD 08:05
PROVIDERS: ATTEND Physician Assistant
DX: I10 Essential (primary) hypertension (principal)
CPT/HCPCS: 78452; 93017; A9502